=== PATIENT | female | born 1995 | race African-American/Black ===

== ENCOUNTER 2020-01-19 13:36 | Outpatient (CLI) | payer BC, OTHER ==
[2020-01-21 12:11] LABS: SARS-CoV-2 MS2 Positive; SARS-CoV-2 N Gene Negative; SARS-CoV-2 S Gene Negative; SARS-CoV-2 by NAA Not Detected (NotDetected); SARS-CoV-2 orf1ab Negative
== END 2020-01-19 13:37 | disposition home or self-care (01) ==
LOC: LABBT 13:36
PROVIDERS: ATTEND Obstetrics & Gynecology
DX: Z20.828 Contact with and (suspected) exposure to other viral communicable diseases (principal)
CPT/HCPCS: 87635; U0003

== ENCOUNTER 2020-01-22 19:03 | Inpatient (IN) | payer BC, OTHER ==
--- NOTE | 2020-01-22 19:01 | PDOC.LDHP ---
Labor and Delivery H&P HPI: 24 y/o at 38 weeks for term medical induction of labor for CHTN/Morbid Obesity. Current gestational age (weeks): 38 Due date: 02/05/20 Grav: 1 Para: 0 Current complications: hypertension, other (Morbid Obesity) Abnormal US findings: No Current medications: pre-tiffanie vitamins Allergies/Adverse Reactions: Allergies Allergy/AdvReac Type Severity Reaction Status Date / Time No Known Allergies Allergy Unverified 11/16/19 13:27 Social history: none - Physical Exam Vital signs reviewed and normal: yes General: NAD, resting Heart: RRR Lungs: nonlabored breathing Abdomen: NTTP Extremeties: no edema FHT: category 1 - Assessment L&D Assessment: medically indicated induction - Plan Plan: admit to L&D, cervical ripening
[~2020-01-22 19:03] MED LIST: Acetaminophen 500 MG TAB PO PRN; Butorphanol Tartrate 1 MG/ML VIAL SLOW IVP PRN; Carboprost 250 MCG/ML AMP IM PRN; Diphenoxylate HCl/Atropine Tablet PO PRN; HYDROcodone/Acetaminophen 5/325 mg Tablet PO PRN; Ibuprofen 800 MG TAB PO PRN; Lidocaine 1% (PF) 30 ML VIAL SC PRN; Misoprostol 200 MCG TAB PR PRN; NS / Oxytocin 40 units/1000ml 1,000 ML IV PRN; NS w/ Oxytocin 10 units 500 ML IV SCH; Ondansetron PF 4 MG/2 ML Vial IVP PRN; Promethazine HCl 25 MG/ML VIAL IM PRN; hydrALAZINE 20 MG/ML VIAL SLOW IVP PRN
[2020-01-22 19:34] VITALS: BMI 53.5
[2020-01-22 19:49] LABS: Hemoglobin 9.9 g/dL (12.0-16.0); Mean Corpuscular HGB CONC 32.4 g/dL (32.0-36.0); Mean Corpuscular Hemoglobin 24.8 pg (27.0-31.0); Mean Corpuscular Volume 76.6 fL (78.0-98.0); Mean Platelet Volume 10.6 fL (7.4-10.4); Platelet Count 241 thou/uL (130-400); RBC Distribution Width 13.2 % (11.5-14.5); White Blood Cell (WBC) Count 16.8 thou/uL (4.8-10.8)
[2020-01-22] MEDS: Lactated Ringer's 1,000 ML IV SCH ×2 (19:55→22:05)
[2020-01-22] MEDS: Misoprostol 100 MCG TAB VAG SCH ×2 (19:55→23:45)
[2020-01-22 20:27] LABS: Syphilis Antibody Nonreactive (Nonreactive); Syphilis Antibody Index 0.05 S/CO (<1.00 Non-Reactive)
[2020-01-22] MEDS ORDERED: FLU VACC QS2020-21(6MOS UP)/PF 60 MCG/0.5 ML SYRINGE IM ONE (21:00)
[2020-01-22 22:31] LABS: HBSAg Index 0.24 S/CO (0-0.99); Hep B Surf Ag Non-Reactive S/CO (NonReactive)
[2020-01-23] MEDS: NS w/ Oxytocin 10 units 500 ML IV SCH (02:43)
[2020-01-23] MEDS: Misoprostol 100 MCG TAB VAG SCH ×2 (03:12→16:54)
[2020-01-23] MEDS ORDERED: DISCONTINUE ALL PREVIOUS NARCOTICS FS SCH (03:15)
[2020-01-23] MEDS ORDERED: Fentanyl 100 MCG/2 ML VIAL ONE (03:28)
[2020-01-23] MEDS: Bupivacaine 0.5% 20 ML, fentaNYL Citrate/PF 400 MCG in Sodium Chloride 0.9% 72 ML EPIDURAL SCH ×3 (04:00→16:54)
[2020-01-23] MEDS ORDERED: Ondansetron PF 4 MG/2 ML Vial IVP PRN (04:06)
[2020-01-23] MEDS ORDERED: Lactated Ringer's 500 ML IV PRN (04:06)
[2020-01-23] MEDS ORDERED: Promethazine HCl 25 MG/ML VIAL IM PRN (04:06)
[2020-01-23] MEDS ORDERED: diphenhydrAMINE 50 MG/ML VIAL IVP PRN (04:06)
[2020-01-23] MEDS ORDERED: Naloxone HCl 0.4 mg/ml Vial IVP PRN ×2 (04:06)
[2020-01-23] MEDS ORDERED: ePHEDrine 50 MG/ML VIAL SLOW IVP PRN (04:06)
[2020-01-23] MEDS ORDERED: Acetaminophen 325 MG TAB PO PRN (04:06)
[2020-01-23] MEDS ORDERED: Communication Order-Pharmacy FS SCH (04:15)
[2020-01-23] MEDS ORDERED: Fentanyl 4 mcg/Bupivacaine 0.1% Cassette 100 ML EPIDURAL SCH (04:15)
[2020-01-24] MEDS ORDERED: Misoprostol 200 MCG TAB VAG PRN (00:30)
[2020-01-24] MEDS ORDERED: Lanolin Ointment 7 GM TUBE TOP PRN (00:30)
[2020-01-24] MEDS ORDERED: Benzocaine-Menthol 82.5 ML CAN TOP PRN (00:30)
[2020-01-24] MEDS ORDERED: Preparation H Ointment 28 GM TUBE PR PRN (00:30)
[2020-01-24] MEDS ORDERED: Zolpidem Tartrate 5 MG TAB PO PRN (00:30)
[2020-01-24] MEDS ORDERED: NS / Oxytocin 40 units/1000ml 1,000 ML IV SCH (00:30)
[2020-01-24] MEDS ORDERED: Promethazine HCl 25 MG/ML VIAL IM PRN (00:30)
[2020-01-24] MEDS ORDERED: Ondansetron PF 4 MG/2 ML Vial IVP PRN (00:30)
[2020-01-24] MEDS ORDERED: Bisacodyl 10 MG SUPP PR PRN (00:30)
[2020-01-24] MEDS ORDERED: diphenhydrAMINE 25 MG CAP PO PRN (00:30)
[2020-01-24] MEDS ORDERED: hydrALAZINE 20 MG/ML VIAL SLOW IVP PRN (00:30)
[2020-01-24] MEDS ORDERED: HYDROcodone/Acetaminophen 5/325 mg Tablet PO PRN ×2 (00:30)
[2020-01-24] MEDS ORDERED: Milk Of Magnesia 30 ML UDCUP PO PRN (00:30)
[2020-01-24] MEDS: Ibuprofen 800 MG TAB PO SCH ×3 (02:21→16:52)
[2020-01-24] MEDS: Misoprostol 100 MCG TAB VAG SCH (03:18)
[2020-01-24] MEDS: NS w/ Oxytocin 10 units 500 ML IV SCH (03:18)
[2020-01-24] MEDS: Lactated Ringer's 1,000 ML IV SCH (03:19)
[2020-01-24 07:56] LABS: Hemoglobin 8.3 g/dL (12.0-16.0); Mean Corpuscular HGB CONC 33.2 g/dL (32.0-36.0); Mean Corpuscular Hemoglobin 25.7 pg (27.0-31.0); Mean Corpuscular Volume 77.3 fL (78.0-98.0); Mean Platelet Volume 10.1 fL (7.4-10.4); Platelet Count 200 thou/uL (130-400); RBC Distribution Width 13.1 % (11.5-14.5); Red Blood Cell (RBC) Count 3.23 mill/uL (4.20-5.40); White Blood Cell (WBC) Count 24.5 thou/uL (4.8-10.8)
[2020-01-24] MEDS: Prenatal Vitamin 1 TAB PO SCH (08:05)
[2020-01-24] MEDS: Ferrous Sulfate 325 MG TAB PO SCH ×2 (08:05→22:11)
[2020-01-24] MEDS: Docusate Calcium (SURFAK) 240 MG CAP PO SCH ×2 (08:05→22:11)
[2020-01-24] MEDS ORDERED: Measles/Mumps/Rubella 10 MCG/0.5 ML VIAL SC ONE (09:00)
[2020-01-24] MEDS ORDERED: Adacel (T-DAP) 0.5 ML SYRINGE IM ONE (09:00)
[2020-01-24] MEDS ORDERED: Varicella virus, LIVE 0.5 ML VIAL SC ONE (09:00)
--- NOTE | 2020-01-24 22:05 | PDOC.PP ---
Post Progress Note Post Day #: 1 PO intake tolerated: yes Flatus: yes Ambulation: yes Vital Signs (12 hours) Temp Pulse Resp BP Pulse Ox 01/24/20 19:18 98.4 F 86 16 114/59 L 100 01/24/20 16:53 98.3 F 87 20 113/61 100 01/24/20 11:42 97.6 F 86 20 122/68 100 Weight Weight 312 lb - Physical Examination General: NAD Cardiovascular: no m/r/g, RRR Respiratory: clear to auscultation bilaterally, non-labored breathing Abdominal: + bowel sounds, lochia, no distention, appropriately TTP Extremities: negative homans (B) Neurological: no gross focal deficits Psychiatric: A&Ox3, normal affect Result Diagrams: 01/24/20 07:41 Additional Labs: Post Labs Hep Bs Antigen Non-Reactive S/CO (NonReactive) 01/22/20 19:31 Blood Type O NEGATIVE 01/22/20 19:31
[2020-01-25] MEDS: Ibuprofen 800 MG TAB PO SCH ×2 (00:26→08:26)
--- NOTE | 2020-01-25 06:20 | DN ---
DATE OF PROCEDURE: 01/23/2020 TIME OF SERVICE: 2139 hours central daylight savings time. PREOPERATIVE DIAGNOSIS: Intrauterine at 38 weeks and 1 day with a medical induction of labor for chronic hypertension. POSTOPERATIVE DIAGNOSIS: Intrauterine at 38 weeks and 1 day with a medical induction of labor for chronic hypertension. PROCEDURE: Vacuum-assisted vaginal delivery over a first-degree laceration of the perineum. FINDINGS: Viable male infant weighing 2850 g or 6 pounds 5 ounces, Apgars 8 and 9. QUANTITATIVE BLOOD LOSS: 450. COMPLICATIONS: Arrest of descent prior to vacuum delivery. PROCEDURE IN DETAIL: The patient presented to [facility] where she was admitted to the labor and delivery service. The patient underwent a normal and uneventful labor with normal cervical dilatation until she was found to be completely dilated. She was then allowed to push and was able to bring the baby down and delivered the baby in a vertex presentation without difficulties. Once the head delivered in occiput anterior position, the shoulders followed spontaneously along with the rest of the baby's body. Once out the baby's mouth and nose were bulb suctioned. The cord was clamped and cut and baby was handed to waiting attendants. Cord blood was collected. Gentle fundal massage was performed and the placenta delivered intact without problems. Hemostasis was assured. Quantitative blood loss was calculated. Inspection of the cervix, vaginal vault, and perineum did not reveal any lacerations needing suturing. Once again, hemostasis was within normal limits and the patient was allowed to recover in the labor and delivery room. Baby went to nursery. Job ID: [id number]
[2020-01-25 08:18] VITALS: BP 137/76; TEMP 98.3
[2020-01-25] MEDS: Ferrous Sulfate 325 MG TAB PO SCH (08:26)
[2020-01-25] MEDS: Prenatal Vitamin 1 TAB PO SCH (08:26)
[2020-01-25] MEDS: Docusate Calcium (SURFAK) 240 MG CAP PO SCH (08:26)
== END 2020-01-25 14:15 | disposition home or self-care (01) | DRG 807 ==
LOC: L&D 19:03 → 3SW 01-24 02:32
PROVIDERS: ADMIT Obstetrics & Gynecology; ATTEND Obstetrics & Gynecology
PROC: 10D07Z6 Extraction of Products of Conception, Vacuum, Via Natural or Artificial Opening (ICD-10-PCS; principal; 2020-01-23)
PROC: 0HQ9XZZ Repair Perineum Skin, External Approach (ICD-10-PCS; 2020-01-23)
DX: O99.214 Obesity complicating childbirth (principal); Z37.0 Single live birth; O70.0 First degree perineal laceration during delivery; O10.92 Unspecified pre-existing hypertension complicating childbirth; E66.01 Morbid (severe) obesity due to excess calories; Z3A.38 38 weeks gestation of pregnancy
CPT/HCPCS: 36415; 51702; 85027; 86780; 86850; 86900; 86901; 87340; 87635; J0360; J2590; J3010; J3490; U0003

== ENCOUNTER 2020-02-12 15:32 | Inpatient (IN) | payer BC, OTHER ==
[2020-02-12 16:19] LABS: Bilirubin Negative (Negative); Blood, Urine 2+ (Negative); Clarity Clear (Clear); Glucose, Urine (Dipstick) Normal (Negative); Ketone, Urine Negative (Negative); Leukocyte 500 Leu/uL (Negative); Nitrite Negative (Negative); Protein, Urine (Dipstick) Negative (Neg-Trace); RBC/HPF Greater than 50 HPF (0-3); Specific Gravity, Urine 1.013 (1.002-1.036); Urobilinogen Normal mg/dL (Less than 2); WBC/HPF Greater than 50 HPF (0-3); pH, Urine 6.5 (5.0-9.0)
[2020-02-12 16:30] LABS: Bacteria/HPF Rare-Few HPF (None Seen)
[2020-02-12 16:48] LABS: #Basophils 0.1 thou/uL (0.0-0.2); #Eosinphils 0.2 thou/uL (0.0-0.7); #Lymphocytes 2.9 thou/uL (1.20-3.40); #Monocytes 0.6 thou/uL (0.11-0.59); #Neutrophils 6.2 thou/uL (1.40-6.50); %Basophils 0.8 % (0.0-1.0); %Eosinophils 2.4 % (0.0-10.0); %Lymphocytes 28.9 % (21.0-51.0); %Monocytes 5.6 % (0.0-10.0); %Neutrophils 62.3 % (42.0-75.0); Hemoglobin 10.2 g/dL (12.0-16.0); Mean Corpuscular HGB CONC 30.3 g/dL (32.0-36.0); Mean Corpuscular Hemoglobin 23.6 pg (27.0-31.0); Mean Corpuscular Volume 77.7 fL (78.0-98.0); Mean Platelet Volume 10.6 fL (7.4-10.4); Platelet Count 266 thou/uL (130-400); RBC Distribution Width 13.6 % (11.5-14.5); Red Blood Cell (RBC) Count 4.34 mill/uL (4.20-5.40); White Blood Cell (WBC) Count 9.9 thou/uL (4.8-10.8)
[2020-02-12] MEDS ORDERED: hydrALAZINE 10 MG TAB PO SCH (17:00)
[2020-02-12 17:11] LABS: ALT (SGPT) 14 U/L (8-55); AST (SGOT) 16 U/L (5-34); Albumin 3.9 g/dL (3.5-5.0); Alkaline Phosphatase 80 U/L (40-110); Anion Gap 15 mmol/L (10-20); BUN (Urea Nitrogen) 13 mg/dL (7.0-18.7); Bilirubin, Total 0.4 mg/dL (0.2-1.2); CK (CPK) 115 U/L (29-168); Calc. Creatinine Clearance 0 mL/min (70-130); Calcium 8.8 mg/dL (7.8-10.44); Carbon Dioxide 24 mmol/L (22-29); Chloride 104 mmol/L (98-107); Globulin 3.6 g/dL (2.4-3.5); Glucose 80 mg/dL (70-105); Magnesium 1.8 mg/dL (1.6-2.6); Potassium 3.8 mmol/L (3.5-5.1); Protein, Total 7.5 g/dL (6.0-8.3); Sodium 139 mmol/L (136-145); Uric Acid 9.1 mg/dL (2.6-6.0)
[2020-02-12] MEDS ORDERED: Ondansetron ODT 4 MG TAB SL PRN (21:45)
[2020-02-12] MEDS ORDERED: Ondansetron PF 4 MG/2 ML Vial IVP PRN (21:45)
[2020-02-12] MEDS ORDERED: Acetaminophen 325 MG TAB PO PRN (21:45)
[2020-02-12] MEDS ORDERED: Magnesium Sulfate 20 gm/500 ml 20 GM/500 ML BAG ONE (21:55)
[2020-02-12] MEDS ORDERED: Labetalol HCl 100 MG/20 ML VIAL ONE (21:55)
[2020-02-12 21:58] VITALS: BMI 49.1
[2020-02-12] MEDS ORDERED: Labetalol HCl 100 MG/20 ML VIAL SLOW IVP PRN ×2 (21:58→23:16)
[2020-02-12] MEDS ORDERED: hydrALAZINE 20 MG/ML VIAL SLOW IVP PRN ×2 (21:59→23:16)
[2020-02-12] MEDS: Lactated Ringer's 1,000 ML IV SCH (22:00)
[2020-02-12] MEDS ORDERED: Calcium Gluconate 4.6 MEQ in Sodium Chloride 0.9% 100 ML IVPB PRN (22:00)
[2020-02-12] MEDS ORDERED: Magnesium Sulfate 20 GM/WATER 500 ML BAG IVPB SCH (22:15)
[2020-02-12] MEDS ORDERED: Magnesium Sulfate 20 gm/500 ml 20 GM/500 ML BAG IVPB SCH (22:30)
[2020-02-12] MEDS ORDERED: Labetalol 100 MG TAB PO SCH (23:00)
[2020-02-12] MEDS ORDERED: Labetalol HCl 100 MG/20 ML VIAL SLOW IVP SCH (23:30)
[2020-02-13 00:28] LABS: Creatinine, Urine 29.91 mg/dL (47-110)
[2020-02-13 01:08] LABS: Protein, Urine Random Quant Less than 10 mg/dL (1-14)
[2020-02-13] MEDS: Labetalol 100 MG TAB PO SCH ×2 (09:52→21:04)
[2020-02-13] MEDS: Lactated Ringer's 1,000 ML IV SCH ×2 (11:30→21:05)
[2020-02-13] MEDS ORDERED: Acetaminophen 500 MG TAB PO PRN (16:25)
[2020-02-14 03:03] LABS: SARS-CoV-2 MS2 Positive; SARS-CoV-2 N Gene Negative; SARS-CoV-2 S Gene Negative; SARS-CoV-2 by NAA Not Detected (NotDetected); SARS-CoV-2 orf1ab Negative
[2020-02-14] MEDS: Labetalol 100 MG TAB PO SCH (09:17)
[2020-02-14 12:28] VITALS: BP 143/77; TEMP 98.2
--- NOTE | 2020-02-14 18:50 | DIS ---
DATE OF ADMISSION: 02/12/2020 DATE OF DISCHARGE: 02/14/2020 ADMISSION DIAGNOSIS: preeclampsia. CONSULTATIONS: None. COMPLICATIONS: None. DETAILS OF ADMISSION: Ms. Boston was sent from clinic from her first visit to the [facility]. She was admitted from there to Labor and Delivery and begun on magnesium sulfate. She completed a 24-hour course of that medication and was transitioned to oral labetalol 100 mg twice daily. She has been on that medicine approximately 12 hours now and has been doing well with stable blood pressures. She is being discharged to home in stable condition on a new blood pressure medication with clinic follow up in 1 week to recheck her blood pressures. She is having no other complications today and appears to be in good spirits and feeling well. She is now approximately 2 weeks status post vaginal delivery. Job ID: [id number]
[2020-02-15] MEDS ORDERED: FLU VACC QS2020-21(6MOS UP)/PF 60 MCG/0.5 ML SYRINGE IM ONE (09:30)
== END 2020-02-14 15:25 | disposition home or self-care (01) | DRG 776 ==
LOC: ERS 15:32 → 3SW 18:09 → L&D 21:57 → 3SW 02-14 01:20
PROVIDERS: ADMIT Obstetrics & Gynecology; ATTEND Obstetrics & Gynecology
DX: O11.5 Pre-existing hypertension with pre-eclampsia, complicating the puerperium (principal); O10.93 Unspecified pre-existing hypertension complicating the puerperium; Z20.828 Contact with and (suspected) exposure to other viral communicable diseases; Z28.21 Immunization not carried out because of patient refusal; O99.215 Obesity complicating the puerperium; E66.01 Morbid (severe) obesity due to excess calories; Z79.899 Other long term (current) drug therapy
CPT/HCPCS: 36415; 80053; 81003; 81015; 82550; 82570; 83615; 83735; 84156; 84550; 85025; 87635; 93005; 99285; J3475; U0003

== ENCOUNTER 2025-02-15 16:57 | Inpatient (IN) | payer OTHER ==
[2025-02-15] MEDS ORDERED: Acetaminophen 325 MG TAB PO PRN (21:18)
[2025-02-15 23:11] VITALS: BMI 56.7
[2025-02-16] MEDS: Ondansetron PF 4 MG/2 ML Vial IVP PRN (00:41)
[2025-02-16 07:11] LABS: #Basophils 0.04 10x3/uL (0.0-0.2); #Eosinophils 0.18 10x3/uL (0.0-0.7); #Monocytes 0.94 10x3/uL (0.11-0.59); #Neutrophils 7.09 10x3/uL (1.40-6.50); %Basophils 0.4 % (0.0-1.0); %Eosinophils 1.8 % (0.0-10.0); %Lymphocytes 16.3 % (21.0-51.0); %Monocytes 9.5 % (0.0-10.0); %Neutrophils 71.5 % (42.0-75.0); Hematocrit 35.3 % (36.0-47.0); Hemoglobin 10.8 g/dL (12.0-16.0); Mean Corpuscular Hemoglobin 24.9 pg (27.0-31.0); Mean Corpuscular Volume 81.5 fL (78.0-98.0); Platelet Count 240 10x3/uL (130-400); Red Blood Cell (RBC) Count 4.33 mill/uL (4.20-5.40); White Blood Cell (WBC) Count 9.92 10x3/uL (4.8-10.8)
[2025-02-16 07:21] LABS: ALT (SGPT) 326 U/L (Less than 34); AST (SGOT) 150 U/L (11-34); Albumin 3.1 g/dL (3.1-4.5); Alkaline Phosphatase 179 U/L (40-110); Anion Gap 6 mmol/L (10-20); BUN (Urea Nitrogen) 7 mg/dL (7.0-18.7); Bilirubin, Total 6.7 mg/dL (0.3-1.2); Calc. Creatinine Clearance 235 mL/min (70-130); Calcium 8.9 mg/dL (7.8-10.44); Carbon Dioxide 27 mmol/L (22-29); Chloride 107 mmol/L (98-107); Globulin 3.6 g/dL (2.4-3.5); Glucose 101 mg/dL (70-105); Potassium 3.9 mmol/L (3.5-5.1); Sodium 136 mmol/L (136-145)
[2025-02-16] MEDS ORDERED: SUCCINYLCHOLINE/SOD CL,ISO/PF 200 MG/10 ML SYRINGE FS ONE ×2 (10:40→10:56)
[2025-02-16] MEDS ORDERED: Ondansetron PF 4 MG/2 ML Vial ONE (10:45)
[2025-02-16] MEDS ORDERED: PROPOFOL 200 MG/20 ML VIAL ONE (10:56)
[2025-02-16] MEDS ORDERED: Rocuronium Bromide 10 MG/ML (10ML VIAL) ONE (10:56)
[2025-02-16] MEDS ORDERED: SUGAMMADEX SODIUM 200 MG/2 ML VIAL ONE ×2 (11:34)
[2025-02-17 05:52] LABS: #Basophils 0.03 10x3/uL (0.0-0.2); #Eosinophils 0.13 10x3/uL (0.0-0.7); #Monocytes 0.87 10x3/uL (0.11-0.59); #Neutrophils 7.65 10x3/uL (1.40-6.50); %Basophils 0.3 % (0.0-1.0); %Eosinophils 1.2 % (0.0-10.0); %Lymphocytes 22.5 % (21.0-51.0); %Monocytes 7.7 % (0.0-10.0); %Neutrophils 67.7 % (42.0-75.0); Hematocrit 33.6 % (36.0-47.0); Hemoglobin 10.6 g/dL (12.0-16.0); Mean Corpuscular Hemoglobin 25.4 pg (27.0-31.0); Mean Corpuscular Volume 80.4 fL (78.0-98.0); Platelet Count 250 10x3/uL (130-400); Red Blood Cell (RBC) Count 4.18 mill/uL (4.20-5.40); White Blood Cell (WBC) Count 11.29 10x3/uL (4.8-10.8)
[2025-02-17 06:24] LABS: ALT (SGPT) 272 U/L (Less than 34); AST (SGOT) 102 U/L (11-34); Albumin 2.9 g/dL (3.1-4.5); Alkaline Phosphatase 153 U/L (40-110); Anion Gap 5 mmol/L (10-20); BUN (Urea Nitrogen) 7 mg/dL (7.0-18.7); Bilirubin, Total 2.1 mg/dL (0.3-1.2); Calc. Creatinine Clearance 277 mL/min (70-130); Calcium 8.3 mg/dL (7.8-10.44); Carbon Dioxide 26 mmol/L (22-29); Chloride 110 mmol/L (98-107); Globulin 3.4 g/dL (2.4-3.5); Glucose 90 mg/dL (70-105); Potassium 3.6 mmol/L (3.5-5.1); Sodium 137 mmol/L (136-145)
[2025-02-17] MEDS: NIFEdipine XL 30 MG ER.TAB PO SCH (09:14)
[2025-02-17] MEDS: Ferrous Sulfate 325 MG TAB PO SCH (09:14)
[2025-02-17] MEDS: Lisinopril 20 MG TAB PO SCH (09:14)
[2025-02-17 14:08] VITALS: BP 118/63; TEMP 98
[2025-02-18] MEDS ORDERED: FLU (Fluarix Triv) 25-26 (6MOS UP)/PF 45 MCG/0.5 ML Syringe IM ONE (09:00)
== END 2025-02-17 14:30 | disposition home or self-care (01) | DRG 445 ==
LOC: T4-B 18:48 → INTOOBSV 18:48 → OBSVTOIN 02-16 14:40
PROVIDERS: ADMIT Internal Medicine; ATTEND Internal Medicine
PROC: 3E03329 Introduction of Other Anti-infective into Peripheral Vein, Percutaneous Approach (ICD-10-PCS; principal; 2025-02-16)
PROC: 0FC98ZZ Extirpation of Matter from Common Bile Duct, Via Natural or Artificial Opening Endoscopic (ICD-10-PCS; principal; 2025-02-16)
DX: K80.50 Calculus of bile duct without cholangitis or cholecystitis without obstruction (principal); Z68.43 Body mass index [BMI] 50.0-59.9, adult; I10 Essential (primary) hypertension; Z90.49 Acquired absence of other specified parts of digestive tract; Z98.51 Tubal ligation status; Z87.891 Personal history of nicotine dependence; R74.01 Elevation of levels of liver transaminase levels; E80.6 Other disorders of bilirubin metabolism; E66.01 Morbid (severe) obesity due to excess calories; D50.9 Iron deficiency anemia, unspecified
CPT/HCPCS: 36415; 74330; 80053; 85025; 96374; 96375; 96376; G0378; J1100; J2270; J2405; J2543; J2704; J7120; Q9967